=== PATIENT | male | born 1980 | race Caucasian/White ===

== ENCOUNTER 2024-12-05 18:59 | Emergency (ER) | payer OTHER, SELFPAY ==
--- NOTE | ~2024-12-05 | XR_ITS ---
XR ribs LT 2V Ordering provider: Vance Dominguez APRN History: . left rib pain/injury . Comparison: None. FINDINGS: BONES: Possible fracture in the left second rib anteriorly. Evaluation for tenderness in the area is advised.. LEFT LUNG: No effusions or infiltrates. No pneumothorax. SOFT TISSUES: Normal. IMPRESSION: Possible fracture in the left second rib anteriorly. Evaluation for tenderness in the area advised Reviewed, dictated and finalized at location A.
--- NOTE | 2024-12-05 19:03 | ED.CHESTPAIN ---
HPI - Chest Pain General Chief Complaint: Fall Stated Complaint: pain in ribs Time Seen by Provider: 12/05/24 19:03 Source: patient Mode of arrival: ambulatory Limitations: no limitations History of Present Illness HPI narrative: Asa is a 44-year-old male patient presenting to the clinic today with complaints of pain in his left ribs x3 days. He reports that he slipped and fell when standing on top of a dumpster and caught himself on the side of the dumpster. Is reporting pain to the left anterior lower ribs. Pain with taking breaths, coughing, and sneezing. Has been taking ibuprofen for pain. Related Data Allergies Allergy/AdvReac Type Severity Reaction Status Date / Time No Known Allergies Allergy Verified 12/05/24 19:26 Review of Systems Review of Systems: Pertinent positives per HPI. Patient denies any fever, chills, rash, headache, visual changes, dizziness, cough, runny nose, sore throat, palpitations, nausea, vomiting, diarrhea, constipation, abdominal pain, or any urinary issues. [facility] Family History Family History Sibling Patient's brother is in good health Mother Patient's mother is Father Patient's father is Social History Social History Smoking status: Current every day smoker Alcohol intake: current Comments At the time of my signature, I reviewed and agree with the nursing past medical, surgical, social, and family history. There is no relevant family history pertinent to the patient complaint. Exam Narrative: General: Well-developed, well nourished, in no apparent distress Head: Normocephalic, atraumatic. Chest wall: No bruising or swelling noted, even rise and fall of the chest wall, tenderness to palpation over the left lower anterior rib ribs Cardio: Regular rate and rhythm, s1 and s2 normal, no murmur appreciated. Resp: Clear to auscultation bilaterally, no rhonchi, rales, wheezing or rubs. Extremities: No deformity, no edema, no cyanosis, capillary refill less than 2 seconds, peripheral pulses palpable and strong. Integumentary: [place], warm, and dry, intact without lesion, no rashes. Course Course Emergency Course: Portions of this record may have been created with voice recognition software. Level of Care: Express Care Visit Vital Signs Vital signs: Vital Signs Temperature 37.0 C 12/05/24 19:20 Pulse Rate 111 H 12/05/24 19:20 Respiratory Rate 16 12/05/24 19:20 Blood Pressure 128/88 12/05/24 19:20 Pulse Oximetry 99 12/05/24 19:20 Oxygen Delivery Room Air 12/05/24 19:20 Temperature 37.0 C 12/05/24 19:20 Pulse Rate 111 H 12/05/24 19:20 Respiratory Rate 16 12/05/24 19:20 Blood Pressure 128/88 12/05/24 19:20 Pulse Oximetry 99 12/05/24 19:20 Oxygen Delivery Room Air 12/05/24 19:20 Vital signs reviewed MDM - Chest Pain MDM Narrative Medical decision making narrative: At the time of visit patient is resting comfortably on the exam table. Patient appears to be nontoxic. Diagnostics: X-rays of the left ribs show fracture possibly of the 2nd rib anteriorly and also of the anterior 9th and 10th ribs. No pneumothorax, hemothorax, or pneumonia. Plan: Patient has multiple left-sided rib fracture. Prescription was sent to the pharmacy as well as some Zofran for nausea. Incentive spirometer was given in the clinic today. Supportive measures were discussed with the patient and they voiced understanding discharge instructions and agrees to treatment plan. Return precautions reviewed Differential Diagnosis Differential diagnosis: Likely fracture of rib, pneumothorax, atypical chest pain and costochondritis (Pneumonia) Imaging Data Radiologist's impression: ITS Impressions Ribs X-Ray 12/05/24 20:01 IMPRESSION: Possible fracture in the left second rib anteriorly. Evaluation for tenderness in the area advised ADDENDUM: 12/05/242014 A fracture in the anterior left ninth and 10th ribs is also noted. Discharge Plan Discharge Clinical Impression: Left rib fracture Qualifiers: Encounter type: initial encounter Rib fracture type: multiple ribs Fracture type: closed Qualified Code(s): S22.42XA - Multiple fractures of ribs, left side, initial encounter for closed fracture Patient Disposition: Home Condition: Stable Instructions: Antibiotic Form, Rib Fracture (ED) Additional Instructions: X-ray shows fractures of the distal 9th and 10th ribs as well as probable fracture of the 2nd rib. No sign of pneumonia or pneumothorax. Use incentive spirometer every 2-4 hours while awake. May take Tylenol/Motrin as needed for pain Splint the area using your hand, blankets, or upper lobe when coughing, deep breathing, or sneezing Follow-up with your primary care doctor this week or early next week Patient Language: Kisw[place]ili Prescriptions: New hydrocodone-acetaminophen 5-325 mg tablet 1 tablet PO Q6H PRN (Reason: pain) 3 Days Qty: 12 0RF ondansetron 4 mg tablet,disintegrating 4 mg PO Q6H PRN (Reason: nausea and vomiting) 3 Days Qty: 12 0RF Follow-up/Referrals: UNKNOWN,DOCTOR [Primary Care Provider] - Time of Disposition: 20:13 Quality NIHSS Nursing Documentation ED NIHSS nursing documentation: reviewed/agree
[2024-12-05 19:20] VITALS: BP 128/88; PULSE 111; RESP 16; TEMP 37; O2SAT 99
== END 2024-12-05 20:28 | disposition home or self-care (01) ==
PROVIDERS: Emergency Provider Nurse Practitioner Family
DX: S22.42XA Multiple fractures of ribs, left side, initial encounter for closed fracture (principal); W01.198A Fall on same level from slipping, tripping and stumbling with subsequent striking against other object, initial encounter; F17.200 Nicotine dependence, unspecified, uncomplicated
CPT/HCPCS: 71100; 99203; G0463